=== PATIENT | female | born 1975 | race Caucasian/White ===

== ENCOUNTER 2021-12-24 21:54 | Emergency (ER) | payer SELFPAY ==
[2021-12-24 23:37] VITALS: BP 132/78; PULSE 76; RESP 16; TEMP 36.2; O2SAT 97; BMI 25.4
[2021-12-24 23:54] LABS: Hemoglobin 11.5 g/dl (12.0-16.0); Mean Corpuscular HGB Conc 32.9 g/dl (31.0-35.0); Mean Corpuscular Hemoglobin 29.6 pg (27.0-33.0); Mean Platelet Volume 9.2 fL (9.4-12.3); Platelet Count 420 X10*3/uL (160-400); Red Blood Count 3.89 X10*6/uL (4.20-5.50); Red Cell Distribution Width 12.3 % (11.0-16.0); White Blood Count 10.7 X10*3/uL (4.8-10.8)
[2021-12-25 00:18] LABS: Appearance Urine Clear; Color Urine Yellow; Glucose Urine UA 100 mg/dL (Negative); Leukocyte Esterase Urine Negative (Negative); Nitrite Urine Negative (Negative); Urine Blood Negative (Negative); Urine Ketones Negative (Negative); Urine Protein Negative (Neg-Trace)
[2021-12-25 00:20] LABS: Alanine Aminotransferase 22 U/L (0-31); Albumin Level 4.3 g/dL (3.5-5.0); Alkaline Phosphatase 69 U/L (39-117); Anion Gap 16 (12-20); Aspartate Amino Transferase 19 U/L (5-31); Bilirubin Direct < 0.2 mg/dL (0.0-0.5); Bilirubin Total 0.2 mg/dL (0.0-1.0); Blood Urea Nitrogen 16 mg/dL (9-16); Calcium 9.4 mg/dL (8.4-10.2); Carbon Dioxide 24 mmol/L (22-29); Chloride 104 mmol/L (96-108); Creatinine Clr Calc Pharmacy 71.7; Estimated Glomerular Filt Rate > 60; Glucose Random 221 mg/dL (60-115); Lipase 72 U/L (8-78); Potassium 4.6 mmol/L (3.3-5.1); Sodium 139 mmol/L (135-145); Total Protein 7.4 g/dL (6.5-8.0)
[2021-12-25 00:23] LABS: Bacteria Urine 4+ (None Seen); Hyaline Casts Urine 0-2 /LPF (0-2); RBC Urine 0-2 /HPF (0-2); WBC Urine 0-5 /HPF (0-5)
--- NOTE | 2021-12-25 02:37 | ED.GENADULT ---
HPI - General Adult General Chief complaint: General Medical Stated complaint: lower back pain Time Seen by Provider: 12/25/21 02:32 Source: patient Limitations: no limitations History of Present Illness HPI narrative: This is a 38-year-old female who complains of pain in her right upper back for about 3 days. The patient denies any injury or onset during exercise or straining. She does have history of UTIs which presented atypically. She denies UTI symptoms. She denies any fever or cough. She denies abdominal pain. Patient denies any shortness of breath. She has not had any recent travel or immobilization. He denies any pain or swelling in her legs. She denies any worsened symptoms with taking a deep breath. Patient was concerned that she might have a kidney infection causing her pain. Related Data Previous Rx's Medication Instructions Recorded cyclobenzaprine 10 mg tablet 10 mg PO TID PRN muscle spasm #14 12/25/21 tabs ibuprofen 600 mg tablet 600 mg PO Q6H PRN pain #30 tabs 12/25/21 Allergies Allergy/AdvReac Type Severity Reaction Status Date / Time No Known Allergies Allergy Verified 12/24/21 23:45 Review of Systems Review of Systems: Yes all other systems are reviewed and are negative Constitutional: Constitutional: Reports as per HPI and Denies fever(s) Eyes: Eyes: Reports as per HPI and Reports no additional eye complaints ENT: Reports system reviewed and no additional complaints, except as documented, Reports as per HPI, Denies nasal congestion, Denies nasal discharge and Denies sore throat Cardiovascular: Cardiovascular: Reports as per HPI, Denies chest pain and Denies dyspnea Respiratory: Respiratory: Reports as per HPI, Denies cough and Denies dyspnea Gastrointestinal: Gastrointestinal: Reports as per HPI, Denies abdominal pain, Denies diarrhea and Denies vomiting Genitourinary: Genitourinary: Reports as per HPI, Denies hematuria, Denies urinary frequency and Denies dysuria Musculoskeletal: Musculoskeletal: Reports no additional musculoskeletal complaints and Denies numbness Integumentary/Breasts: Skin/Breast: Reports as per HPI and Denies rash Neurologic: Reports as per HPI, Denies focal weakness and Denies numbness Psychiatric: Psychiatric: Reports no additional psychiatric complaints and Reports as per HPI Endocrine: Endocrine: Reports no additional endocrine complaints and Reports as per HPI Hematologic/Lymphatic: Hematologic/Lymphatic: Reports no additional hematologic/lymphatic complaints, Reports as per HPI and Reports other (No peripheral edema) [facility] Social History Social History Advance Directives: No Physical Exam ED Vital Signs: Vital Signs - 24 hr 12/24/21 23:37 Temperature 97.1 F Pulse Rate 76 Respiratory Rate 16 Blood Pressure 132/78 Pulse Oximetry 97 Oxygen Delivery Method Room Air BMI result Body Mass Index 25.4 Const General: no acute distress Orientation/consciousness: patient oriented x3 HENMT Head: Yes normal to inspection General nose exam: Normal external nose present Mouth: moist mucous membranes Throat: Yes posterior oropharynx normal, Yes tonsils normal and Yes uvula midline Eyes Eyelids: Yes eyelids normal Conjunctivae: conjunctivae normal Pupils: Equal, round and reactive pupils present Neck Neck: Yes supple Chest Other: Tender right mid chest below the scapula, pain clearly reproducible with palpation. No CVA tenderness Resp Effort & Inspection: normal respiratory effort Auscultation: clear to auscultation bilaterally Cardio Rate: regular rate Rhythm: regular rhythm Heart sounds: S1 normal heart sound present, S2 normal heart sound present, no gallops, no murmurs and no rubs GI Inspection: No distended Palpation (GI): Soft to palpation and nontender Auscultation: normal bowel sounds Skin General skin exam: other (Warm and dry) Neuro General: patient oriented x3 and CN's II-XI intact bilaterally Cranial nerves: Yes Equal, round and reactive pupils present Extrem General: Yes no pedal edema Psych Affect: normal affect Attitude: cooperative Medical Decision Making [facility] Narrative Medical decision making narrative: Patient with pain below her right scapula and right posterior chest for about 3 days. No respiratory symptoms. No shortness of breath. Tenderness to palpation. Patient was concerned about a kidney infection. Urinalysis is negative. CBC and chemistry panel unremarkable. No clinical evidence of any acute pulmonary disease. Doubt pulmonary embolism given the overall clinical picture. Lab Data Result diagrams: 12/24/21 23:48 12/24/21 23:48 Labs: Lab Results 12/24/21 12/24/21 12/24/21 Range/Units 23:48 23:48 23:58 WBC 10.7 (4.8-10.8) X10*3/uL RBC 3.89 L (4.20-5.50) X10*6/uL Hgb 11.5 L (12.0-16.0) g/dl Hct 35.0 L (37.0-47.0) % MCV 90.0 (80.0-98.0) fL MCH 29.6 (27.0-33.0) pg MCHC 32.9 (31.0-35.0) g/dl RDW 12.3 (11.0-16.0) % Plt Count 420 H (160-400) X10*3/uL MPV 9.2 L (9.4-12.3) fL Absolute Nucleated RBC 0.000 (0.0-0.012) X10*3/uL Nucleated RBC % (auto) 0.0 (0.0-0.2) /100WBC Sodium 139 (135-145) mmol/L Potassium 4.6 (3.3-5.1) mmol/L Chloride 104 (96-108) mmol/L Carbon Dioxide 24 (22-29) mmol/L Anion Gap 16 (12-20) BUN 16 (9-16) mg/dL Creatinine 0.77 (0.5-1.4) mg/dL Estim Creat Clear Calc 71.7 Estimated GFR > 60 Random Glucose 221 H (60-115) mg/dL Calcium 9.4 (8.4-10.2) mg/dL Total Bilirubin 0.2 (0.0-1.0) mg/dL Direct Bilirubin < 0.2 (0.0-0.5) mg/dL AST 19 (5-31) U/L ALT 22 (0-31) U/L Alkaline Phosphatase 69 (39-117) U/L Total Protein 7.4 (6.5-8.0) g/dL Albumin 4.3 (3.5-5.0) g/dL Lipase 72 (8-78) U/L Urine Color Yellow Urine Appearance Clear Urine pH 6.0 (5.0-9.0) Ur Specific [place] 1.020 (1.005-1.025) Urine Protein Negative (Neg-Trace) mg/dL Urine Glucose (UA) 100 H (Negative) mg/dL Urine Ketones Negative (Negative) mg/dL Urine Blood Negative (Negative) Urine Nitrite Negative (Negative) Ur Leukocyte Esterase Negative (Negative) Urine RBC 0-2 (0-2) /HPF Urine WBC 0-5 (0-5) /HPF Ur Squamous Epith Cells 3-5 (0-2) /HPF Urine Bacteria 4+ (None Seen) Hyaline Casts 0-2 (0-2) /LPF Discharge Plan Discharge Clinical Impression: Acute chest wall pain Patient Disposition: Home, Self-Care Instructions: Chest Wall Pain (ED) Additional Instructions: Use ibuprofen and cyclobenzaprine as prescribed. Return for any new or worsened symptoms such as increased chest pain, shortness of breath, fever cough. Follow-up with your primary care physician. Prescriptions: New ibuprofen 600 mg tablet 600 mg PO Q6H PRN (Reason: pain) Qty: 30 0RF cyclobenzaprine 10 mg tablet 10 mg PO TID PRN (Reason: muscle spasm) Qty: 14 0RF Interventions: ED Discharge Assessment Last Done: 12/25/21 03:55 Discharge Date/Time: 12/25/21 03:56
--- OUTSIDE RECORDS SUMMARY | 2021-12-25 02:49 | XMS_ITS ---
:1975 Author Care Team Providers Name Role Phone DR. ROSE MARY ALMENDAREZ Primary Care Provider Unavailable DR. ROSE MARY ALMENDAREZ Referring Provider Unavailable Allergies Code Code System Name Reaction Severity Status Onset NKDA ? Medications Name Status Start Date Stop Date ? ? amoxicillin 500 mg capsule Active ? Not a vailable TAKE 1 CAPSULE BY MOUTH TWICE DAILY FOR 10 DAYS FOR INFECTION amoxicillin 875 mg-potassium clavulanate 125 mg tablet Completed ? 05/05/2021 TAKE 1 TABLET BY MOUTH TWICE DAILY FOR 7 DAYS azithromycin 250 mg tablet Completed ? 05/05 TK 2 TS PO ON DAY 1, THEN TK 1 T PO D FOR 4 DAYS celecoxib 200 mg capsule Active ? Not angel ilable Take 1 capsule twice a day by oral route for 14 days. ciprofloxacin 250 mg tablet Completed ? 04/22 TAKE 1 TABLET BY MOUTH TWICE DAILY duloxetine 30 mg capsule,delayed release Completed ? 05/05/2021 TAKE 1 CAPSULE BY MOUTH DAILY lidocaine 5 % topical ointment Completed ? 0 05/05/2021 APPLY TOPICALLY TO THE AFFECTED AREA 2 TO 3 TIMES DAILY metformin ER 500 mg tablet,extended release 24 hr Active ? Not available TAKE 1 TABLET BY MOUTH TWICE DAILY methocarbamol 500 mg tablet Completed ? 04/22 TAKE 1 TO 2 TABLETS BY MOUTH FOUR TIMES DAILY NEEDED pravastatin 20 mg tablet Active ? Not angel ilable TAKE 1 TABLET BY MOUTH AT BEDTIME Trulicity 0.75 mg/0.5 mL subcutaneous pen injector Active ? Not available INJECT CONTENTS OF 1 PEN ONCE WEEKLY Problems Name Status Onset Date Source ? Plantar Fasciitis Active 05/05/2021 ? Procedures Date Name Performed by ? 05/05/2021 XR, Foot, 2 View In-House Test For Internal Use Onl y Do Not Delete/merge [id number] 05/05/2021 XR, Calcaneus, 2 or More View In-House T est For Internal Use Onl y Do Not Delete/merge [id number] Notes: Patient indicated no previous s urgeries on (05/05/2021) Results Lab Results None recorded. Past Encounters 05/05/2021 Pain in Both Feet; Calcaneal Spur; Plant ar Fasciitis; Heel Pain; Type 2 Diabetes Mellitus Well Controlled; Acquired Left Hallux Valgus; Equinus Contracture of the Ankle; Bilateral Acquired Hallux Limitus of Great Toes Benny Restrepo, DPM: [address] [facility], [place] [address], Ph. Social History Tobacco Smoking Status Never Smoker Vaccine List None recorded. Plan of Care Patient Instructions Rachell, Take 200mg celebrex 2x/day for the next 10 days. Do the foam rolling (any time of day), towel stretch (before getting out of bed in AM), contrast baths (end of day), tissue specific plantar fascia stret ch(3x/day) and use night splint every da y for the next 4 weeks. Read the blog on [employer] as we may do that if you are slow to improve. Get the hokas to help rule out if you need orthotics. Good luck! Patient Education Materials have been sh ared with you. The materials were sent to your persona l email address. ? You will not find it on the patient po rtal. ? You may have to check your Junk/Spam/C lutter folder. ? The sender address is [email or web address] ? Title of email: Dr. Restrepo has sent yo u education materials. Reminders Provider Appointments None recorded. ? ? Lab None recorded. ? ? Referral None recorded. ? ? Procedures None recorded. ? ? Surgeries None recorded. ? ? Imaging None recorded. ? ? Vitals Height Weight BMI 5 ft 135 lbs 26.4 kg/m2
[2021-12-25] MEDS: diazePAM 2 MG TABLET 4 MG PO (03:52)
[2021-12-25] MEDS: Ibuprofen 600 MG TABLET PO (03:52)
== END 2021-12-25 03:56 | disposition home or self-care (01) ==
PROVIDERS: Emergency Provider Emergency Medicine
DX: R07.89 Other chest pain (principal)
CPT/HCPCS: 36415; 80053; 81001; 82248; 83690; 85027; 99283